=== PATIENT | female | born 2000 | race Caucasian/White ===

== ENCOUNTER 2021-06-09 23:45 | Emergency (ER) | payer OTHER, SELFPAY ==
--- NOTE | ~2021-06-09 | XR_ITS ---
Examination: XR hand wrist LT Indication: PAIN S/P INJURY Comparison: No pertinent prior studies are currently available for comparison. Technique: 3 plain film views of the left hand and wrist Findings: Bones are in normal anatomic alignment. I do not appreciate any acute fracture or dislocation. No bony destructive lesions or periosteal reaction. No radiopaque foreign body. XR/XR hand wrist LT Impression: No acute bony abnormality.
[2021-06-09 23:50] VITALS: BP 120/75; PULSE 99; RESP 16; TEMP 36.9; O2SAT 100; BMI 32.2
--- NOTE | 2021-06-10 00:17 | ED.EXTPRO ---
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[employer] slammed her left hand and wrist to the wall earlier comes with bruising of the left thumb and left wrist painful to move her left thumb no other injury Related Data Previous Rx's Medication Instructions Recorded ibuprofen 600 mg tablet 600 mg PO Q6H PRN #20 tab 06/10/21 Allergies Allergy/AdvReac Type Severity Reaction Status Date / Time No Known Allergies Allergy Verified 06/09/21 23:54 Review of Systems Review of Systems: Yes all other systems are reviewed and are negative PMFSH Past Medical History Medical History No known health problems Social History Social History Advance Directives: No Advance Directives Information Provided: Yes Patient : No Physical Exam Vital Signs: Vital Signs: Last Vital Signs Temp 98.4 F 06/09/21 23:50 Pulse 99 06/09/21 23:50 Resp 16 06/09/21 23:50 BP 120/75 06/09/21 23:50 Pulse Ox 100 06/09/21 23:50 Body Mass Index 32.2 Extrem: Hand/finger images: 1. Superficial bruise/hematoma no bony tenderness or deformity neurovascular intact 2. Superficial bruise on left wrist good range of movement no bony tenderness MDM - Extremity (Nontraumatic) MDM Narrative Medical decision making narrative: Patient left hand and left wrist x-ray negative for fracture discharge patient home on ibuprofen and thumb spica splint was applied for support Discharge Plan Discharge Clinical Impression: Contusion of left thumb Qualifiers: Encounter type: initial encounter Damage to nail status: without damage Qualified Code(s): S60.012A - Contusion of left thumb without damage to nail, initial encounter Patient Disposition: Home, Self-Care Instructions: Hand Sprain (ED) Additional Instructions: Support to the left hand and left thumb apply ice wear wrist splint for support Ibuprofen for pain Prescriptions: New ibuprofen 600 mg tablet 600 mg PO Q6H PRN (Reason: pain) Qty: 20 RF: 0 Stand Alone Forms: Work/School Release Interventions: ED Discharge Assessment Last Done: 06/10/21 00:39
[2021-06-10] MEDS: Ibuprofen 600 MG TABLET PO (00:39)
== END 2021-06-10 00:32 | disposition home or self-care (01) ==
PROVIDERS: Emergency Provider Internal Medicine; PCP Pediatrics
DX: S60.012A Contusion of left thumb without damage to nail, initial encounter (principal); M79.645 Pain in left finger(s); Y29.XXXA Contact with blunt object, undetermined intent, initial encounter; Y93.9 Activity, unspecified; Y92.9 Unspecified place or not applicable; Y99.9 Unspecified external cause status; Z79.899 Other long term (current) drug therapy
CPT/HCPCS: 29125; 73110; 73130; 99283; 99284

== ENCOUNTER 2022-09-23 08:43 | Emergency (ER) | payer OTHER, SELFPAY ==
--- NOTE | ~2022-09-23 | XR_ITS ---
EXAMINATION: XR CHEST CLINICAL INFORMATION: History of Covid infection and shortness of breath. COMPARISON: None TECHNIQUE: Frontal view of the chest was obtained. FINDINGS: Lungs are well expanded and clear. No evidence of interstitial disease, consolidation or pleural effusion. Cardiomediastinal silhouette has normal size and contour. Incidentally noted is a focus of punctate calcification in the region of the distal infraspinatus tendon at the left shoulder. The visualized bones and upper abdomen are unremarkable. XR/XR chest 1V IMPRESSION: No evidence of pneumonia. No acute cardiopulmonary findings.
[2022-09-23 08:46] VITALS: BP 118/76; PULSE 76; RESP 17; TEMP 36.6; O2SAT 99; BMI 32.9
--- NOTE | 2022-09-23 08:51 | ECG_ITS ---
Test Reason : sob Blood Pressure : / mmHG Vent. Rate : 071 BPM Atrial Rate : 071 BPM P-R Int : 162 ms QRS Dur : 076 ms QT Int : 362 ms P-R-T Axes : 016 036 020 degrees QTc Int : 393 ms Normal sinus rhythm Normal ECG No previous ECGs available Referred By: Generic ED Physician Electronically Signed By:Puma Torre
--- OUTSIDE RECORDS SUMMARY | 2022-09-23 09:12 | XMS_ITS | Continuity of Care Document ---
:2000 Author Organization [facility] Address [address] [place] [address]- Care Team Providers Name Role Phone Scarlet HERNANDEZ, Eddie Primary Care Physician Encounter [facility] [place] Date(s): 03/02/22 - 06/30/22 [facility] [address] [place] [address]- Attending Physician: Kelsi MCCLOUD, Perry Mart Referring Physician: Eddie Novak NP Allergies, Adverse Reactions, Alerts Substance Reaction Severity Status Seasonale Active Immunizations Given and Recorded Vaccine Date Status Refusal Reason Influenza Virus Vaccine (oldterm) 05/16/21 Recorded Influenza Virus Vaccine (oldterm) 07/06/20 Recorded tetanus-diphtheria toxoids (Td) 07/08/19 Recorded meningococcal group B vaccine 06/06/16 Recorded Meningococcal Conjugate Vaccine 04/30/16 Recorded Meningococcal Conjugate Vaccine 04/09/11 Recorded tetanus/diphtheria/pertussis, acel(Tdap) 04/04/09 Recorde d Varicella Virus Vaccine 04/04/09 Recorded Varicella Virus Vaccine 03/06/00 Recorded Measles/Mumps/Rubella Virus Vaccine 03/14/03 Recorded Measles/Mumps/Rubella Virus Vaccine 03/06/00 Recorded Hepatitis B Vaccine (old term) 99 Recorded Hepatitis B Vaccine (old term) 99 Recorded Hepatitis B Vaccine (old term) 99 Recorded Medications cloNIDine 0.1 mg oral tablet 0.1 mg, 1, tablet, By Mouth, Daily at bedtime, # 90 tablet, Refills 1, Tot. Refills 1, Maintenance, 06/24/22 9:56:00 EDT, Route to Pharmacy Electronically, [id number], Partial fill upon patient request if the prescription is for a antwon... Start Date: 06/24/22 Stop Date: 12/21/22 Status: Orderedescitalopram 20 mg oral tablet 1 tablet = 20 mg, By Mouth, Daily, # 90 tablet, 3 Refills, Maintenance, 06/26/21 12:08:00 EDT, Tablet, [facility][id number], Partial fill upon patient request if the prescription is for a schedule II opioid drug., 154, cm, 06/26/21 11:08:00 EDT... Start Date: 06/26/21 Stop Date: 06/21/22 Status: Orderedlamotrigine 50 mg oral tablet, extended release 1 tablet = 50 mg, By Mouth, Daily, # 90 tablet, 3 Refills, Maintenance, 06/26/21 12:10:00 EDT, [facility] #[id number], Partial fill upon patient request if the prescription is for a schedule II opioid drug., 154, cm, 06/26/21 11:08:00 EDT, Height Start Date: 06/26/21 Stop Date: 06/21/22 Status: OrderedLORazepam 1 mg oral tablet 1 tablet = 1 mg, By Mouth, Daily, PRN as needed for anxiety, # 30 tablet, 3 Refills, Maintenance, 03/10/22 0:26:00 EDT, [facility] #[id number], Partial fill upon patient request if the prescription is for a schedule II opioid drug., 154, cm, 05/0... Start Date: 03/10/22 Status: Orderedmetoprolol 25 mg oral tablet 25 mg, 1, tablet, By Mouth, 2 times a day, # 180 tablet, Refills 3, Tot. Refills 3, Maintenance, 06/08/21 12:07:00 EDT, Route to Pharmacy Electronically, [facility] #[id number], 154, cm, 06/01/21 10:33:00 EDT, Height Start Date: 06/08/21 Stop Date: 06/03/22 Status: OrderedZofran 4 mg oral tablet 1 tablet = 4 mg, By Mouth, Every 8 hours, as needed for nausea and vomiting, # 12 tablet, 0 Refills,Maintenance, 01/01/22 15:44:00 EDT, [facility] #[id number], Partial fill upon patient request if the prescription is for a schedule II opioid duane... Start Date: 01/01/22 Status: Ordered Problem List Condition Confirmation Course Effective Dates Status Health Stat us Informant Irregular Confirmed Active periods/menstrual cycles Obese class I Confirmed Active Palpitations Confirmed Active Palpitations Confirmed Active Social History Social History Type Response Smoking Status Never (less than 100 in life time) entered on: 06/26/21 Sex Patient Care team information PersonnelName: Eddie Novak NP Address: Address: [address] [place] [address] [address]
--- OUTSIDE RECORDS SUMMARY | 2022-09-23 09:12 | XMS_ITS | Continuity of Care Document ---
:1999 Author Organization [facility] Address [address] [place] [address]- Care Team Providers Name Role Phone Kaye Anthony MD Primary Care Physician Encounter [facility] [place] Date(s): 09/27/20 - 10/27/20 [facility] [address] [place] [id number] Allergies, Adverse Reactions, Alerts Substance Reaction Severity Status NKA Active Medications Clonidine 0 Refills, Maintenance, 09/27/19 15:26:00 EST Start Date: 09/27/19 Status: OrderedEscitalopram By Mouth, Daily, 0 Refills, Maintenance, 09/27/19 15:26:00 EST Start Date: 09/27/19 Status: OrderedhydrOXYzine hydrochloride 25 mg oral tablet 1 tablet = 25 mg, By Mouth, Daily, # 30 tablet, 0 Refills, Maintenance, 02/26/19 14:03:42 EDT, Tablet Start Date: 02/26/19 Status: OrderedLamotrigine By Mouth, Refills 0, Maintenance, 09/27/19 15:26:00 EST Start Date: 09/27/19 Status: OrderedLORazepam 1 mg oral tablet 1 tablet = 1 mg, By Mouth, 2 times a day, PRN as needed for anxiety, 0 Refills, Maintenance, 02/26/19 14:04:04 EDT, Tablet Start Date: 02/26/19 Status: Orderedmetoprolol 25 mg oral tablet 25 mg, 1, tablet, By Mouth, 2 times a day, # 180 tablet, Refills 2, Tot. Refills 2, Maintenance, 09/11/20 12:07:00 EST, Route to Pharmacy Electronically, [facility] #[id number], 154, cm, 09/27/19 15:22:00 EST, Height Start Date: 09/11/20 Stop Date: 06/08/21 Status: Orderedomeprazole 20 mg oral enteric coated capsule 1 capsule = 20 mg, By Mouth, Daily, # 30 capsule, 0 Refills, Maintenance, 02/26/19 14:03:02 EDT, EC Capsule Start Date: 02/26/19 Status: OrderedraNITIdine 300 mg oral capsule 1 capsule = 300 mg, By Mouth, Daily at bedtime, # 30 capsule, 0 Refills, Maintenance, 02/26/19 14:03:54 EDT, Capsule Start Date: 02/26/19 Status: OrderedVienva 100 mcg-20 mcg oral tablet 1 tablet, By Mouth, Daily, 0 Refills, Maintenance, 02/26/19 14:03:16 EDT Start Date: 02/26/19 Status: Ordered Problem List Condition Effective Dates Status Health Status Informant Anxiety(Confirmed) Active Palpitations(Confirmed) Active Palpitations(Confirmed) Active Social History Social History Type Response Smoking Status Never (less than 100 in life time) entered on: 02/26/19 Sex
--- OUTSIDE RECORDS SUMMARY | 2022-09-23 09:12 | XMS_ITS | Continuity of Care Document ---
:2000 Author Organization [facility] Address [address] [place] [phone]- Care Team Providers Name Role Phone Scarlet HERNANDEZ, Eddie Primary Care Physician Encounter [facility] [place] Date(s): 06/06/21 - 07/06/21 [facility] [address] [place], [place] [id number]- Attending Physician: Bryson Degroot Admitting Physician: Bryson Degroot Referring Physician: Bryson Degroot Allergies, Adverse Reactions, Alerts Substance Reaction Severity Status NKA Active Immunizations Given and Recorded Vaccine Date [...] B Vaccine (old term) 99 Recorded Medications metoprolol 25 mg oral tablet 25 mg, 1, tablet, By Mouth, 2 times a day, # 180 tablet, Refills 3, Tot. Refills 3, Maintenance, 06/08/21 12:07:00 EDT, Route to Pharmacy Electronically, [facility] #[id number], 154, cm, 06/01/21 10:33:00 EDT, Height Start Date: 06/08/21 Stop Date: 9/19/22 Status: Ordered Problem List Condition Effective Dates Status Health Status Informant Anxiety(Confirmed) Active Irregular periods/menstrual Active cycles(Confirmed) Palpitations(Confirmed) Active Palpitations(Confirmed) Active Social History Social History Type Response Smoking Status Never (less than 100 in life time) entered on: 06/26/21 Sex
--- OUTSIDE RECORDS SUMMARY | 2022-09-23 09:12 | XMS_ITS | Continuity of Care Document ---
:2000 Author Organization [facility] Address [address] [place] [address]- Care Team Providers Name Role Phone Eddie Novak NP Primary Care Physician [place] [facility] [place] 09[place]01/22 [facility] [address] [place] [address]- Allergies, Adverse Reactions, Alerts Substance Reaction Severity [...] 06/24/22 9:56:00 EDT, Route to Pharmacy Electronically, [facility] #[id number], Partial fill upon patient request if the prescription is for a antwon... Start Date: 06/24/22 Stop Date: 12/21/22 Status: Orderedescitalopram 20 mg oral tablet 1 tablet = 20 mg, By Mouth, Daily, # 90 tablet, 3 Refills, Maintenance, 06/26/21 12:08:00 EDT, Tablet, [facility][id number], Partial fill upon patient request if the prescription is for a schedule II opioid drug., 154, cm, 06/26/21 11:08:00 EDT... Start Date: 06/26/21 Stop Date: 06/21/22 Status: Orderedlamotrigine 25 mg oral tablet 25 mg, 1, tablet, By Mouth, 2 times a day, # 180 tablet, Refills 1, Tot. Refills 1, Maintenance, 08/27/22 10:20:00 EST, Route to Pharmacy Electronically, [facility] #[id number], Partial fill upon patient request if the prescription is for a sched... Start Date: 08/27/22 Stop Date: 02/23/23 Status: OrderedLORazepam 1 mg oral tablet 1 tablet = 1 mg, By Mouth, Daily, PRN as needed for anxiety, # 30 tablet, 3 Refills, Maintenance, 03/10/22 0:26:00 EDT, [facility] #[id number], Partial fill upon patient request if the prescription is for a schedule II opioid drug., 154, cm, 050... Start Date: 03/10/22 Status: Orderedmetoprolol 25 mg oral tablet 25 mg, 1, tablet, By Mouth, 2 times a day, # 180 tablet, Refills 3, Tot. Refills 3, Maintenance, 08/02/22 12:00:00 EST, Route to Pharmacy Electronically, [facility] #[id number], 154, cm, 04/19/22 11:38:00 EDT, Height Start Date: 08/02/22 Stop Date: 07/28/23 Status: OrderedZofran 4 mg oral tablet 1 tablet = 4 mg, By Mouth, Every 8 hours, as needed for nausea and vomiting, # 12 tablet, 0 Refills,Maintenance, 01/01/22 15:44:00 EDT, [facility] #[id number], Partial fill upon patient request if the [...] on: 06/26/21 Sex Patient Care team information Care Team PersonnelName: Eddie Novak NP Position: [facility] Associate Professional Member Role: PCP Address: Address: [address] [place] [address] [place] [address]- [place] Care Team Related PersonsName: STEPHAN ALBARADO Address: [place] [address] Name: IGNACIO ALBARADO Address: [place] [address]
--- OUTSIDE RECORDS SUMMARY | 2022-09-23 09:12 | XMS_ITS | Continuity of Care Document ---
:1999 Author Organization [facility] Address [address] [place] [address]- Care Team Providers Name Role Phone Scarlet HERNANDEZ, Eddie Primary Care Physician [place] [facility] [place] 12/05/21 [facility] [address] [place] [address]- Attending Physician: Shamika العلي NP Referring Physician: Eddie Novak NP Allergies, Adverse Reactions, Alerts No Known Allergies Immunizations Given and Recorded Vaccine Date Status [...] 06/08/21 12:07:00 EDT, Route to Pharmacy Electronically, [facility] #[id number], 154, cm, 06/01/21 10:33:00 EDT, Height Start Date: 06/08/21 Stop Date: 06/03/22 Status: Ordered Problem List Condition Effective Dates Status Health Status Informant Irregular periods/menstrual Active cycles(Confirmed) Anxiety and depression(Confirmed) Active Obese class I(Confirmed) Active Palpitations(Confirmed) Active Palpitations(Confirmed) Active Vital Signs Most recent to oldest [Reference Range]: 1 Height 154 cm (11/28/21 7:38 AM) Weight 78.4 kg (11/28/21 7:38 AM) Oxygen Saturation [94-100 %] 98 % (11/28/21 7:38 AM) Pulse Rate [55-90 bpm] 88 bpm (11/28/21 7:38 AM) Body Mass Index [18.5-24.99] 33.06 *>HHI* (11/28/21 7:38 AM) Blood Pressure [90-138/55-84 mm Hg] 122/68 mm Hg (11/28/21 7:38 AM) Blood pressure sites Arm, left (11/28/21 7:38 AM) Social History Social History Type Response Smoking Status Never (less than 100 in life time) entered on: 06/26/21 Sex
--- OUTSIDE RECORDS SUMMARY | 2022-09-23 09:12 | XMS_ITS | Continuity of Care Document ---
:1999 Author Organization [facility] Address [address] [place] [address]- Care Team Providers Name Role Phone Scarlet HERNANDEZ, Eddie Primary Care Physician [place] [facility] [place]01[place]21 - 07/01/21 [facility] [address] [place], [place] [id number]- Attending Physician: Bryson Degroot Admitting Physician: Bryson [...] 06/08/21 12:07:00 EDT, Route to Pharmacy Electronically, [facility] #[id number], 154, cm, 06/01/21 10:33:00 EDT, Height Start Date: 06/08/21 Stop Date: 06/03/22 Status: Ordered Problem List Condition Effective Dates Status Health Status Informant Anxiety(Confirmed) Active Irregular periods/menstrual Active cycles(Confirmed) Palpitations(Confirmed) Active Palpitations(Confirmed) Active Social History Social History Type Response Smoking Status Never (less than 100 in life time) entered on: 06/26/21 Sex
--- OUTSIDE RECORDS SUMMARY | 2022-09-23 09:12 | XMS_ITS | Continuity of Care Document ---
:1999 Author Organization [facility] Address [address] [place] [address]- Care Team Providers Name Role Phone Kaye Anthony MD Primary Care Physician [place] [facility] [place](s): 09/27/19 - 11/05/[address] [address]- [facility] Attending Physician: Gregorio Lynne MD Admitting Physician: Gregorio Lynne MD Allergies, Adverse Reactions, Alerts Substance Reaction Severity [...] 02/26/19 Status: Orderedmetoprolol 25 mg oral tablet 12.5 mg, 0.5, tablet, By Mouth, 2 times a day, # 90 tablet, Refills 1, Tot. Refills 1, Maintenance, 09/14/19 13:26:00 EST, Route to Pharmacy Electronically, [facility] #[id number], 154, cm, 02/26/19 14:01:00 EDT, Height Start Date: 09/14/19 Status: Orderedomeprazole 20 mg oral enteric coated [...]
--- OUTSIDE RECORDS SUMMARY | 2022-09-23 09:12 | XMS_ITS | Continuity of Care Document ---
:1999 Author Organization [facility] Address [address] [place] [address]- Care Team Providers Name Role Phone Kaye Anthony MD Primary Care Physician Encounter [facility] [place] Date(s): 09/27/19 - 10/07/19 [facility] [address] [place] [address]- [facility] Attending Physician: Bryson Degroot Admitting Physician: Admtr, Bryson Referring Physician: Admtr, Ar8 Allergies, Adverse Reactions, Alerts Substance Reaction Severity [...] 09/14/19 13:26:00 EST, Route to Pharmacy Electronically, [facility] #[id number], 154, cm, 02/26/19 14:01:00 EDT, Height Start [...]
--- OUTSIDE RECORDS SUMMARY | 2022-09-23 09:12 | XMS_ITS | Continuity of Care Document ---
:2000 Author Organization [facility] Address [address] [place] [address]- Care Team Providers Name Role Phone Scarlet HERNANDEZ, Eddie Primary Care Physician Encounter [facility] Date(s): 07/02/21 - 09/01/[address] [address] Attending Physician: Eddie Novak NP Admitting Physician: Eddie Novak NP Referring Physician: Eddie Novak NP Allergies, [...] 06/08/21 12:07:00 EDT, Route to Pharmacy Electronically, [facility] #[id number], 154, cm, 06/01/21 10:33:00 EDT, Height Start Date: 06/08/21 Stop Date: 06/03/22 Status: Ordered Problem List Condition Effective Dates Status Health Status Informant Anxiety(Confirmed) Active Irregular periods/menstrual Active cycles(Confirmed) Palpitations(Confirmed) Active Palpitations(Confirmed) Active Social History Social History Type Response Smoking Status Never (less than 100 in life time) entered on: 06/26/21 Sex
--- OUTSIDE RECORDS SUMMARY | 2022-09-23 09:12 | XMS_ITS | Continuity of Care Document ---
:1999 Author Organization [facility] Address [address] [place] [address]- Care Team Providers Name Role Phone Kaye Anthony MD Primary Care Physician Encounter [facility] [place] Date(s): 06/01/21 - 06/08/21 [facility] [address] [place] [phone]- Encounter Diagnosis Palpitations (Discharge Diagnosis) - 06/01/21 Anxiety (Discharge Diagnosis) - 06/01/21 Attending Physician: Perry Dolan MD Referring Physician: Kaye Anthony MD Allergies, Adverse Reactions, Alerts Substance Reaction [...] 06/08/21 12:07:00 EDT, Route to Pharmacy Electronically, [facility][id number], 211, cm, 06/01/21 10:33:00 EDT, Height Start Date: 06/08/21 Stop Date: 06/03/22 Status: Orderedomeprazole 20 mg oral enteric coated [...] Informant Anxiety(Confirmed) Active Palpitations(Confirmed) Active Palpitations(Confirmed) Active Diagnosis Diagnosis Type Effective Dates Health Status Clinical In formant Service Palpitations Discharge 06/01/21 Diagnosis Anxiety Discharge 06/01/21 Diagnosis Vital Signs Most recent to oldest [Reference Range]: 1 Height 154 cm (06/01/21 10:33 AM) Weight 78.4 kg (06/01/21 10:33 AM) Oxygen Saturation [94-100 %] 99 % (06/01/21 10:33 AM) Pulse Rate [55-90 bpm] 83 bpm (06/01/21 10:33 AM) Body Mass Index [18.5-24.99] 33.06 *>HHI* (06/01/21 10:33 AM) Blood Pressure [90-138/55-84 mm Hg] 124/90 mm Hg (06/01/21 10:33 AM) Temperature [96.8-100.4 DegF] 69.9 DegF *L* (06/01/21 10:33 AM) Blood pressure sites Arm, left (06/01/21 10:33 AM) Temperature Route Temporal (06/01/21 10:33 AM) Social History Social History Type Response Smoking Status Never (less than 100 in life time) entered on: 02/26/19 Sex
--- OUTSIDE RECORDS SUMMARY | 2022-09-23 09:12 | XMS_ITS | Continuity of Care Document ---
:1999 Author Organization [facility] Address [address] [place] [address]- Care Team Providers Name Role Phone Scarlet HERNANDEZ, Eddie Primary Care Phys[place] [facility] [place]26/22 [facility] [address] [place] [id number] Allergies, Adverse Reactions, Alerts Substance Reaction Severity [...] 06/08/21 12:07:00 EDT, Route to Pharmacy Electronically, [facility] #[id number], 154, cm, 06/01/21 10:33:00 EDT, Height Start Date: 06/08/21 Stop Date: 06/03/22 Status: Ordered Problem List Condition Effective Dates Status Health Status Informant Irregular periods/menstrual Active cycles(Confirmed) Obese class I(Confirmed) Active Palpitations(Confirmed) Active Palpitations(Confirmed) Active Social History Social History Type Response Smoking Status Never (less than 100 in life time) entered on: 06/26/21 Sex
--- OUTSIDE RECORDS SUMMARY | 2022-09-23 09:12 | XMS_ITS | Continuity of Care Document ---
:2000 Author Organization [facility] Address [address] [place] [address]- Care Team Providers Name Role Phone Scarlet HERNANDEZ, Eddie Primary Care Physician Encounter [facility] [place] Date(s): 05/31/22 - 06/30/22 [facility] [address] [place] [address]- Attending Physician: Bryson Degroot Admitting Physician: Bryson Degroot Referring Physician: AdmtrBryson Allergies, Adverse Reactions, Alerts Substance Reaction Severity [...] 06/24/22 9:56:00 EDT, Route to Pharmacy Electronically, [facility] #[id number], Partial fill upon patient request if the prescription is for a antwon... Start Date: 06/24/22 Stop Date: 12/21/22 Status: Orderedescitalopram 20 mg oral tablet 1 tablet = 20 mg, By Mouth, Daily, # 90 tablet, 3 Refills, Maintenance, 06/26/21 12:08:00 EDT, Tablet, [facility] #[id number], Partial fill upon patient request if the prescription is for a schedule II opioid drug., 154, cm, 06/26/21 11:08:00 EDT... Start Date: 06/26/21 Stop Date: 06/21/22 Status: Orderedlamotrigine 50 mg oral tablet, extended release 1 tablet = 50 mg, By Mouth, Daily, # 90 tablet, 3 Refills, Maintenance, 06/26/21 12:10:00 EDT, [facility] #[id number], Partial fill upon patient request if the prescription is for a schedule II opioid drug., 154, cm, 06/26/21 11:08:00 EDT, Height Start Date: 06/26/21 Stop Date: 06/21/22 Status: OrderedLORazepam 1 mg oral tablet 1 tablet = 1 mg, By Mouth, Daily, PRN as needed for anxiety, # 30 tablet, 3 Refills, Maintenance, 03/10/22 0:26:00 EDT, [facility] #[id number], Partial fill upon patient request if the prescription is for a schedule II opioid drug., 154, cm, 05/0... Start Date: 03/10/22 Status: Orderedmetoprolol 25 mg oral tablet 25 mg, 1, tablet, By Mouth, 2 times a day, # 180 tablet, Refills 3, Tot. Refills 3, Maintenance, 06/08/21 12:07:00 EDT, Route to Pharmacy Electronically, [facility] #[id number], 154, cm, 06/01/21 10:33:00 EDT, Height Start Date: 06/08/21 Stop Date: 06/03/22 Status: OrderedZofran 4 mg oral tablet 1 tablet = 4 mg, By Mouth, Every 8 hours, as needed for nausea and vomiting, # 12 tablet, 0 Refills,Maintenance, 01/01/22 15:44:00 EDT, [facility] #[id number], Partial fill upon patient request if the [...] information PersonnelName: Eddie Novak NP Address: Address: [address] [place] [address] [address]
--- OUTSIDE RECORDS SUMMARY | 2022-09-23 09:12 | XMS_ITS ---
:2000 Author Care Team Providers Name Role Phone SHALONDA RODRIGUEZ Primary Care Provider [phone] Allergies Code Code System Name Reaction Severity Status Onset NKDA ? Medications Name Status Start Date Stop Date ? ? clonidine Active ? Not available clonidine HCl 0.1 mg tablet Active ? Not available TAKE 1 TABLET BY MOUTH EVERY DAY AT BEDTIME escitalopram 20 mg tablet Active ? Not av ailable TAKE 1 TABLET BY MOUTH EVERY DAY ID NOW COVID-19 Test Kit Active ? Not jeremy ilable TEST DIRECTED TODAY lamotrigine Active ? Not available lamotrigine ER 50 mg tablet,extended release 24 hr Active ? Not available TAKE 1 TABLET BY MOUTH DAILY lorazepam 1 mg tablet Active ? Not availa ble TAKE 1 TABLET BY MOUTH EVERY DAY NEEDED FOR ANXIETY metoprolol succinate Active ? Not availab le metoprolol tartrate 25 mg tablet Active ? Not available TAKE 1 TABLET BY MOUTH TWICE A DAY mirtazapine 7.5 mg tablet Active ? Not av ailable TAKE 1 TABLET BY MOUTH DAILY AT BEDTIME ondansetron HCl 4 mg tablet Active ? Not available TAKE 1 TABLET BY MOUTH EVERY 8 HOURS NEEDED FOR NAUSEA AND V OMITING Melangeur Operator COVID-19 At-Home Test kit Active ? Not available USE ACCORDNING TO MANUFACTURE'S DIRECTION prednisone 50 mg tablet Active ? Not avai lable TAKE 1 TABLET BY MOUTH ONCE PER DAY FOR 5 DAYS Problems None recorded. Procedures Date Name Performed by ? 03/01/2022 XR, Foot, 3 or More View [facility] [address] [place], [place] [id number] (Work Place) Results Lab Results None recorded. Past Encounters Encounter Date Diagnosis Provider 03/01/2022 Injury of Foot; Sprain of Right Kornelia Moysis AUSTEN Smith: Foot [address], [place] [address], Ph. Social History None recorded. Vaccine List Vaccine Type influenza, injectable, quadrivalent 07/08/2019 influenza, injectable, quadrivalent, pre servative free 07/06/2020 influenza, seasonal, injectable 05/10/2021 meningococcal B, OMV 04/30/2016 06/06/2016 meningococcal MCV4O 04/09/2011 meningococcal MCV4P 04/30/2016 MMR 03/06/2000 03/14/2003 Td (adult), adsorbed 07/08/2019 Tdap 04/04/2009 varicella 03/06/2000 04/04/2009 Plan of Care Reminders Provider Appointments None recorded. ? ? Lab None recorded. ? ? Referral None recorded. ? ? Procedures None recorded. ? ? Surgeries None recorded. ? ? Imaging None recorded. ? ? Vitals Blood Pressure 119/80 mm[Hg]
--- OUTSIDE RECORDS SUMMARY | 2022-09-23 09:12 | XMS_ITS | Continuity of Care Document ---
:2000 Author Organization [facility] Address Unavailable , Care Team Providers Name Role Phone Kaye Anthony MD Primary Care Physician Encounter [facility] [id number] Date(s): 04/05/21 - 05/05/21 [facility] Attending Physician: Bryson Degroot Admitting Physician: Bryson [...] 09/11/20 12:07:00 EST, Route to Pharmacy Electronically, [facility] #[id number], 154, cm, 09/27/19 15:22:00 EST, Height Start [...]
--- OUTSIDE RECORDS SUMMARY | 2022-09-23 09:12 | XMS_ITS | Continuity of Care Document ---
:2000 Author Organization [facility] Address [address] [place] [id number]- Care Team Providers Name Role Phone Kaye Anthony MD Primary Care Physician En[place] [facility] [place] Date(s): 09/11/20 - 10/11/20 [facility] [address] [place] [id number] Allergies, Adverse Reactions, Alerts Substance Reaction Severity [...] 09/11/20 12:07:00 EST, Route to Pharmacy Electronically, [facility] #[id number], 154, cm, 09/27/19 15:22:00 EST, Height Start [...]
[2022-09-23 09:17] VITALS: BP 109/73; PULSE 73; TEMP 36.7; O2SAT 99
--- NOTE | 2022-09-23 09:47 | ED.URI ---
HPI - URI/Sore Throat General Chief Complaint: Upper Respiratory Symptoms Stated Complaint: COVID+/Difficulty breathing Time Seen by Provider: 09/23/22 09:06 Source: patient Mode of arrival: ambulatory Limitations: no limitations History of Present Illness HPI Narrative: 22-year-old female COVID positive states she woke up last night unable to breathe and felt improved since then. Patient is vaccinated for COVID patient takes several medications for anxiety and depression she denies any fevers states she does not have MD elicited complaint: fever, cough and nasal congestion Related Data Previous Rx's Medication Instructions Recorded ibuprofen 600 mg tablet 600 mg PO Q6H PRN pain #20 tabs 06/10/21 Allergies Allergy/AdvReac Type Severity Reaction Status Date / Time No Known Allergies Allergy Verified 06/09/21 23:54 Review of Systems Review of Systems: Review of systems: General: Patient denies any fever chills recent illness or falls Musculoskeletal: Denies back pain or body aches or other injuries HEENT: denies headache, runny nose, ear pain Respiratory: denies shortness of breath, cough Cardiovascular: chest pain no palpitations : denies dysuria, frequency Abdomen: no nausea vomiting denies abdominal pain Extremities: no swelling, no pain Skin: no diaphoresis Yes all other systems are reviewed and are negative PMFSH Past Medical History Medical History No known health problems Social History Social History Alcohol intake: never Smoked in Last 30 Days: No Use of substances other than those prescribed or required for medical reasons: No Advance Directives: No Advance Directives Information Provided: No Patient : No Physical Exam Vital Signs: Vital Signs: Last Vital Signs Temp 98.0 F 09/23/22 10:34 Pulse 77 09/23/22 10:34 Resp 18 09/23/22 10:34 BP 114/72 09/23/22 10:34 Pulse Ox 96 09/23/22 10:34 O2 Del Method 09/23/22 10:34 BMI result Body Mass Index 32.9 General: Well-appearing well-nourished in no signs of distress HEENT: Normocephalic atraumatic Neck: No signs of JVD, no masses no tenderness or lymphadenopathy Cardiovascular: Regular rate and rhythm Respiratory: Clear to auscultation bilaterally Abdomen: Soft nontender no masses Extremities: Normal pedal pulses no signs of edema Skin: Dry warm no rashes Back: No tenderness full ROM Medications Administered Discontinued Medications Generic Name Dose Route Start Last Admin Trade Name Dereje PRN Reason Stop Dose Admin Acetaminophen 650 mg 09/23/22 09:54 09/23/22 10:30 Acetaminophen 325 Mg Tablet PO 09/23/22 09:55 650 mg ONCE ONE Administration Ibuprofen 400 mg 09/23/22 09:54 09/23/22 10:30 Ibuprofen 400 Mg Tablet PO 09/23/22 09:55 400 mg ONCE ONE Administration Medical Decision Making Medical Decision Making [facility] Narrative: Patient looks well her pain has since resolved EKG is unremarkable no signs of ST elevation or depression I will will give patient for an x-ray the patient some Tylenol and ibuprofen this even give patient feeling better. XR is negative Patient looks well I will discharge home. Differential Diagnosis Differential Diagnoses: The differential diagnosis associated with the presentation includes COVID pneumonia upper respiratory infection very unlikely ACS or PE with known covid and no hypoxia or tachycardia Admission/Observation Consideration of admission/observation: Escalation of care including admission/observation considered Lab Data [facility] Lab Attestation statement: I reviewed the patient's lab results. Independent Interpretation I performed an independent interpretation of an: EKG Interpretation: Rate 68 nsr normal intervals no signs of ischemia Discharge Plan Discharge Clinical Impression: Upper respiratory infection, COVID-19 Patient Disposition: Home, Self-Care Instructions: Acute Bronchitis (ED), Viral Syndrome (ED) Additional Instructions: Please call to follow up with your doctor. If you have any other concerns please return to the ED. Prescriptions: No Action ibuprofen 600 mg tablet 600 mg PO Q6H PRN (Reason: pain) Qty: 20 0RF
[2022-09-23] MEDS: Acetaminophen 325 MG TABLET 650 MG PO (10:30)
[2022-09-23] MEDS: Ibuprofen 400 MG TABLET PO (10:30)
[2022-09-23 10:34] VITALS: BP 114/72; PULSE 77; RESP 18; TEMP 36.7; O2SAT 96
--- NOTE | 2022-09-23 10:35 | PC.NURSE ---
patient a&ox3, c/o mid sternal chest pain with inspiration, lungs diminished, pt medicated for pain, vss, will continue to monitor
== END 2022-09-23 12:05 | disposition home or self-care (01) ==
PROVIDERS: Emergency Provider Student in an Organized Health Care Education/Training Program; PCP Nurse Practitioner Family
DX: U07.1 COVID-19 (principal); J06.9 Acute upper respiratory infection, unspecified; F41.9 Anxiety disorder, unspecified; F32.A Depression, unspecified; Z79.899 Other long term (current) drug therapy
CPT/HCPCS: 71045; 93005; 99283; 99284

== ENCOUNTER 2022-10-16 20:52 | Emergency (ER) | payer OTHER, SELFPAY ==
[2022-10-16 21:06] VITALS: BP 116/77; PULSE 84; RESP 16; TEMP 36.4; O2SAT 99; BMI 31.1
[2022-10-16 22:04] LABS: Influenza A PCR NEGATIVE (Negative); Influenza B PCR NEGATIVE (Negative); Resp Syncy Virus RNA Qual PCR NEGATIVE (Negative); SARS COV2 PCR INHOUSE NEGATIVE (Negative)
--- NOTE | 2022-10-17 01:13 | ED.SKABFB ---
HPI - Skin/Abscess/Foreign Bdy General Chief complaint: Skin/Abscess/Foreign Body Stated complaint: allergic reaction? Time Seen by Provider: 10/17/22 01:08 Source: patient Mode of arrival: ambulatory Limitations: no limitations History of Present Illness HPI narrative: Patient comes in the emergency room complaining of a facial rash. Patient states that earlier today she has been feeling ?under the weather?. Patient got home, had 1 episode of vomiting, remove her makeup, realized that she had a particular rash on her face. Patient denies any itchiness, no shortness of breath. Rash nowhere else in her body. Related Data Previous Rx's Medication Instructions Recorded ibuprofen 600 mg tablet 600 mg PO Q6H PRN pain #20 tabs 06/10/21 prednisone 50 mg tablet 50 mg PO DAILY #4 tabs 10/17/22 Allergies Allergy/AdvReac Type Severity Reaction Status Date / Time No Known Allergies Allergy Verified 06/09/21 23:54 Review of Systems Review of Systems: Constitutional : No Weight loss, No Fever, No Chills, No Night Sweats, No Fatigue, No Malaise ENT/Mouth : No Hearing loss, No Ear Pain, No Nasal Congestion, No Sinus Pain, No Hoarseness, No sore throat, No Rhinorrhea, No Swallowing Difficulty Eyes: No Eye Pain, No Swelling, No Redness, No Foreign Body, No Discharge, No Vision Changes Cardiovascular : No Chest Pain, No SOB, No Dyspnea on Exertion, No Orthopnea, No Edema, No Palpitations Respiratory : No Cough, No Sputum, No Wheezing, No Smoke Exposure, No Dyspnea Gastrointestinal : No Nausea, No Vomiting, No Diarrhea, No Constipation, No abdominal Pain, No Hematochezia, No Melena Genitourinary : no irregular bleeding, No Dysuria, No Urinary Frequency, No Hematuria, No Urinary Incontinence, No Urgency, No Flank Pain, No Urinary Flow Changes, No Hesitancy Musculoskeletal : No joint pain, No Myalgias, No Joint Swelling Skin : Complaining petechial rash in the face Neuro : No Weakness, No Numbness, No Paresthesias, No Loss of Consciousness, No Dizziness, No Headache Psych : No Anxiety/Panic, No Depression, No SI/HI/AH/VH, No Social Issues, Heme/Lymph: No Bruising, No Bleeding,No Lymphadenopathy Endocrine : No Polyuria, No Polydipsia, No Temperature Intolerance PMFSH Past Medical History Medical History No known health problems Social History Social History Alcohol intake: never Advance Directives: No Physical Exam Vital Signs: Vital Signs: Last Vital Signs Temp 97.6 F 10/16/22 21:06 Pulse 89 10/17/22 01:59 Resp 16 10/17/22 01:59 BP 136/75 10/17/22 01:59 Pulse Ox 100 10/17/22 01:59 O2 Del Method 10/17/22 01:59 BMI result Body Mass Index 31.1 Const: Other: Constitutional : No Weight loss, No Fever, No Chills, No Night Sweats, No Fatigue, No Malaise ENT/Mouth : No Hearing loss, No Ear Pain, No Nasal Congestion, No Sinus Pain, No Hoarseness, No sore throat, No Rhinorrhea, No Swallowing Difficulty Eyes: No Eye Pain, No Swelling, No Redness, No Foreign Body, No Discharge, No Vision Changes Cardiovascular : No Chest Pain, No SOB, No Dyspnea on Exertion, No Orthopnea, No Edema, No Palpitations Respiratory : No Cough, No Sputum, No Wheezing, No Smoke Exposure, No Dyspnea Gastrointestinal : No Nausea, No Vomiting, No Diarrhea, No Constipation, No abdominal Pain, No Hematochezia, No Melena Genitourinary : no irregular bleeding, No Dysuria, No Urinary Frequency, No Hematuria, No Urinary Incontinence, No Urgency, No Flank Pain, No Urinary Flow Changes, No Hesitancy Musculoskeletal : No joint pain, No Myalgias, No Joint Swelling Skin : Patient complaining of a petechial rash on the face. Neuro : No Weakness, No Numbness, No Paresthesias, No Loss of Consciousness, No Dizziness, No Headache Psych : No Anxiety/Panic, No Depression, No SI/HI/AH/VH, No Social Issues, Heme/Lymph: No Bruising, No Bleeding,No Lymphadenopathy Endocrine : No Polyuria, No Polydipsia, No Temperature Intolerance Course Course Course Narrative: -patient has a petechial rash in the face. Likely viral exanthem -all of patient's labs are pending -patient was given 1 dose of p.o. prednisone Medications Administered Discontinued Medications Generic Name Dose Route Start Last Admin Trade Name Dereje PRN Reason Stop Dose Admin Prednisone 60 mg 10/17/22 01:15 10/17/22 01:58 Prednisone 20 Mg Tablet PO 10/17/22 01:16 60 mg ONCE ONE Administration Medical Decision Making Medical Decision Making [facility] Narrative: -hematology unremarkable -this is likely a viral exanthem Differential Diagnosis Differential Diagnoses: The differential diagnosis associated with the presentation includes (Viral exanthem, allergic reaction, vasculitis) Lab Data [facility] Lab Attestation statement: I reviewed the patient's lab results. 10/17/22 03:00 10/17/22 03:00 Labs: Lab Results 10/16/22 10/17/22 10/17/22 Range/Units 21:16 03:00 03:00 WBC 7.4 (4.8-10.8) X10*3/uL RBC 4.62 (4.20-5.50) X10*6/uL Hgb 14.3 (12.0-16.0) g/dl Hct 42.1 (37.0-47.0) % MCV 91.1 (80.0-98.0) fL MCH 31.0 (27.0-33.0) pg MCHC 34.0 (31.0-35.0) g/dl RDW 12.0 (11.0-16.0) % Plt Count 312 (160-400) X10*3/uL MPV 9.4 (9.4-12.3) fL Immature Gran % (Auto) 0.3 (0.0-0.4) % Neut % (Auto) 51.6 (45-73) % Lymph % (Auto) 37.1 (20-40) % [place] % (Auto) 8.0 (2-11) % Eos % (Auto) 2.2 (0-4) % Baso % (Auto) 0.8 (0-2) % Lymph # (Auto) 2.7 (1.2-4.9) X10*3/uL [place] # (Auto) 0.6 (0.1-1.2) X10*3/uL Eos # (Auto) 0.2 (0.0-0.4) X10*3/uL Baso # (Auto) 0.1 (0.0-0.2) X10*3/uL Abs Immat Gran (auto) 0.02 (0.00-0.03) X10*3/uL Absolute Neuts (auto) 3.8 (2.0-8.3) x10*3/uL Absolute Nucleated RBC 0.000 (0.0-0.012) X10*3/uL Nucleated RBC % (auto) 0.0 (0.0-0.2) /100WBC PT 12.1 (10.0-13.1) SEC INR 1.1 (0.9-1.1) APTT 35.0 (26.0-36.4) SEC Sodium (135-145) mmol/L Potassium (3.3-5.1) mmol/L Chloride (96-108) mmol/L Carbon Dioxide (22-29) mmol/L Anion Gap (12-20) BUN (9-16) mg/dL Creatinine (0.5-1.4) mg/dL Estim Creat Clear Calc Estimated GFR Random Glucose (60-115) mg/dL Calcium (8.4-10.2) mg/dL Total Bilirubin (0.0-1.0) mg/dL Direct Bilirubin (0.0-0.5) mg/dL AST (5-31) U/L ALT (0-31) U/L Alkaline Phosphatase (39-117) U/L Total Protein (6.5-8.0) g/dL Albumin (3.5-5.0) g/dL Influenza Type A (PCR) NEGATIVE (Negative) Influenza Type B (PCR) NEGATIVE (Negative) RSV RNA Qual (PCR) NEGATIVE (Negative) SARS-CoV-2 RNA (RT-PCR) NEGATIVE (Negative) 10/17/22 Range/Units 03:00 WBC (4.8-10.8) X10*3/uL RBC (4.20-5.50) X10*6/uL Hgb (12.0-16.0) g/dl Hct (37.0-47.0) % MCV (80.0-98.0) fL MCH (27.0-33.0) pg MCHC (31.0-35.0) g/dl RDW (11.0-16.0) % Plt Count (160-400) X10*3/uL MPV (9.4-12.3) fL Immature Gran % (Auto) (0.0-0.4) % Neut % (Auto) (45-73) % Lymph % (Auto) (20-40) % [place] % (Auto) (2-11) % Eos % (Auto) (0-4) % Baso % (Auto) (0-2) % Lymph # (Auto) (1.2-4.9) X10*3/uL [place] # (Auto) (0.1-1.2) X10*3/uL Eos # (Auto) (0.0-0.4) X10*3/uL Baso # (Auto) (0.0-0.2) X10*3/uL Abs Immat Gran (auto) (0.00-0.03) X10*3/uL Absolute Neuts (auto) (2.0-8.3) x10*3/uL Absolute Nucleated RBC (0.0-0.012) X10*3/uL Nucleated RBC % (auto) (0.0-0.2) /100WBC PT (10.0-13.1) SEC INR (0.9-1.1) APTT (26.0-36.4) SEC Sodium 141 (135-145) mmol/L Potassium 3.7 (3.3-5.1) mmol/L Chloride 106 (96-108) mmol/L Carbon Dioxide 25 (22-29) mmol/L Anion Gap 14 (12-20) BUN 16 (9-16) mg/dL Creatinine 0.69 (0.5-1.4) mg/dL Estim Creat Clear Calc 121.9 Estimated GFR > 60 Random Glucose 95 (60-115) mg/dL Calcium 9.0 (8.4-10.2) mg/dL Total Bilirubin 0.5 (0.0-1.0) mg/dL Direct Bilirubin 0.2 (0.0-0.5) mg/dL AST 16 (5-31) U/L ALT 13 (0-31) U/L Alkaline Phosphatase 88 (39-117) U/L Total Protein 7.0 (6.5-8.0) g/dL Albumin 4.4 (3.5-5.0) g/dL Influenza Type A (PCR) (Negative) Influenza Type B (PCR) (Negative) RSV RNA Qual (PCR) (Negative) SARS-CoV-2 RNA (RT-PCR) (Negative) Discharge Plan Discharge Clinical Impression: Petechial rash Patient Disposition: Home, Self-Care Instructions: Acute Rash (ED) Additional Instructions: Please follow-up with your primary care physician tomorrow. If you have any worsening or new symptoms, please return to the emergency room or call 911 Prescriptions: New prednisone 50 mg tablet 50 mg PO DAILY Qty: 4 0RF No Action ibuprofen 600 mg tablet 600 mg PO Q6H PRN (Reason: pain) Qty: 20 0RF
[2022-10-17] MEDS: predniSONE 20 MG TABLET 60 MG PO (01:58)
[2022-10-17 01:59] VITALS: BP 136/75; PULSE 89; RESP 16; O2SAT 100
--- NOTE | 2022-10-17 02:01 | PC.NURSE ---
pt ;has no difficutly swallowing, no resp distress. noted. rash still present to the face with no swelling. pt talking in full sentences
[2022-10-17 03:06] LABS: Basophils Absolute Auto 0.1 X10*3/uL (0.0-0.2); Basophils Percent Auto 0.8 % (0-2); Eosinophils Absolute Auto 0.2 X10*3/uL (0.0-0.4); Eosinophils Percent Auto 2.2 % (0-4); Hematocrit 42.1 % (37.0-47.0); Hemoglobin 14.3 g/dl (12.0-16.0); Imm Gran Abs Auto 0.02 X10*3/uL (0.00-0.03); Imm Gran Pct Auto 0.3 % (0.0-0.4); Lymphocytes Absolute Auto 2.7 X10*3/uL (1.2-4.9); Lymphocytes Percent Auto 37.1 % (20-40); MANUAL DIFF FLAG NO; Mean Corpuscular Volume 91.1 fL (80.0-98.0); Mean Platelet Volume 9.4 fL (9.4-12.3); Monocytes Absolute Auto 0.6 X10*3/uL (0.1-1.2); Neutrophils Absolute Auto 3.8 x10*3/uL (2.0-8.3); Neutrophils Percent Auto 51.6 % (45-73); Platelet Count 312 X10*3/uL (160-400); Red Blood Count 4.62 X10*6/uL (4.20-5.50); White Blood Count 7.4 X10*3/uL (4.8-10.8)
[2022-10-17 03:12] LABS: INTERNATIONAL NORM RATIO 1.1 (0.9-1.1); Prothrombin Time 12.1 SEC (10.0-13.1)
[2022-10-17 03:25] LABS: Alanine Aminotransferase 13 U/L (0-31); Albumin Level 4.4 g/dL (3.5-5.0); Alkaline Phosphatase 88 U/L (39-117); Anion Gap 14 (12-20); Aspartate Amino Transferase 16 U/L (5-31); Bilirubin Direct 0.2 mg/dL (0.0-0.5); Bilirubin Total 0.5 mg/dL (0.0-1.0); Blood Urea Nitrogen 16 mg/dL (9-16); Carbon Dioxide 25 mmol/L (22-29); Chloride 106 mmol/L (96-108); Creatinine Clr Calc Pharmacy 121.9; Estimated Glomerular Filt Rate > 60; Glucose Random 95 mg/dL (60-115); Potassium 3.7 mmol/L (3.3-5.1); Sodium 141 mmol/L (135-145)
== END 2022-10-17 04:07 | disposition home or self-care (01) ==
PROVIDERS: Emergency Provider Emergency Medicine; PCP Nurse Practitioner Family
DX: R23.3 Spontaneous ecchymoses (principal); Z20.822 Contact with and (suspected) exposure to COVID-19; Z20.828 Contact with and (suspected) exposure to other viral communicable diseases
CPT/HCPCS: 0241U; 36415; 80048; 80076; 85025; 85610; 85730; 99283